=== PATIENT | female | born 1985 | race Two or more races ===

== ENCOUNTER 2017-05-21 09:30 | Inpatient (IN) | payer OTHER ==
[~2017-05-21] VITALS: Ht 180.3 cm; Wt 68.9 kg
[2017-05-31] MEDS ORDERED: DIGOXIN0.25 MG/5 PO (04:08)
[2017-05-31] MEDS ORDERED: PRENATAL TABLE1 EAC4 PO (04:10)
== END 2017-06-02 10:02 | DRG 775 ==
LOC: LDR 09:30 → SURG-SUITE 05-31 03:52
PROC: 0KQM0ZZ Repair Perineum Muscle, Open Approach (ICD-10-PCS; principal; 2017-05-31)
PROC: 10E0XZZ Delivery of Products of Conception, External Approach (ICD-10-PCS; 2017-05-31)
PROC: 0W8NXZZ Division of Female Perineum, External Approach (ICD-10-PCS; 2017-05-31)
PROC: 4A1HXCZ Monitoring of Products of Conception, Cardiac Rate, External Approach (ICD-10-PCS; 2017-05-31)
PROC: 4A033R1 Measurement of Arterial Saturation, Peripheral, Percutaneous Approach (ICD-10-PCS; 2017-05-31)
DX: O70.1 Second degree perineal laceration during delivery (principal); Z37.0 Single live birth; Z3A.39 39 weeks gestation of pregnancy

== ENCOUNTER 2017-05-31 01:28 | Outpatient (CLI) | payer OTHER ==
[2017-05-31] MEDS ORDERED: DIGOXIN0.25 MG/5 PO (04:08)
[2017-05-31] MEDS ORDERED: PRENATAL TABLE1 EAC4 PO (04:10)
== END 2017-05-31 04:31 | disposition still patient (30) ==
LOC: OBS/DEL 01:28
DX: O47.1 False labor at or after 37 completed weeks of gestation (principal)